=== PATIENT | male | born 1955 | race Caucasian/White ===

== ENCOUNTER 2017-06-16 16:45 | Inpatient (IN) | payer MEDICARE ==
[~2017-06-16] VITALS: Ht 167.6 cm; Wt 82.6 kg
[2017-06-16] MEDS ORDERED: METHYLPREDNISOLONE SOD SUCC 125 MG/2 ML VIAL IV STA (17:49)
[2017-06-16] MEDS ORDERED: ALBUTEROL (0.083%) 2.5MG/3ML NEB HHN STA (17:49)
[2017-06-16] MEDS ORDERED: ACETAMINOPHEN 325MG TABLET PO STA (18:06)
[2017-06-16 18:42] LABS: HEMATOCRIT. 40.3 % (42.0-52.0); HEMOGLOBIN. 13.9 g/dL (14.0-18.0); MEAN CORPUSCULAR HEMOGLOBIN 34.9 pg (28.0-32.0); MEAN PLATELET VOLUME 9.3 fl (7.4-10.4); PLATELET 89 x1000/uL (130-400); RED BLOOD CELL COUNT 3.99 mill/uL (4.7-6.1); RED CELL DISTRIBUTION WIDTH 12.9 % (11.6-14.6)
[2017-06-16] MEDS ORDERED: ACETAMINOPHEN 650MG SUPP PR ONE (18:45)
[2017-06-16 18:50] LABS: CHLORIDE 85 mEq/L (98-107)
[2017-06-16 18:51] LABS: INR 1.1; PROTHROMBIN TIME 11.2 sec (9.4-11.6)
[2017-06-16 18:55] LABS: TROPONIN I < 0.02 ng/mL (0.00-0.04)
[2017-06-16 18:58] LABS: PLATELET ESTIMATE DECREASED
[2017-06-16] MEDS ORDERED: VANCOMYCIN 1 G PREMIX 200 ML IV ONE (21:00)
[2017-06-16] MEDS ORDERED: PIPERACILLIN/TAZ 3.375G PREMIX 50 ML IV ONE (21:00)
[2017-06-17] VITALS (8 sets, daily range): BP systolic 101–124; BP diastolic 43–84
[2017-06-17] MEDS ORDERED: LORAZEPAM 2MG/ML CPJ IV PRN (07:15)
[2017-06-17] MEDS ORDERED: MORPHINE SULFATE 4 MG/ML CPJ (NOT FOR IM USE) IV PRN (07:15)
[2017-06-17] MEDS ORDERED: ONDANSETRON HCL 4MG/2ML VIAL IV PRN (07:15)
[2017-06-17] MEDS ORDERED: MAGNESIUM/ALUMINUM HYDROXIDE/SIMETHICONE 30ML UDC PO PRN (07:15)
[2017-06-17] MEDS ORDERED: ACETAMINOPHEN 325MG TABLET PO PRN (07:15)
[2017-06-17] MEDS ORDERED: CLONIDINE 0.1MG TABLET PO PRN (07:15)
[2017-06-17] MEDS ORDERED: HYDROCODONE/ACETAMINOPHEN 5/325MG TABLET PO PRN (07:15)
[2017-06-17] MEDS ORDERED: DIPHENHYDRAMINE 50MG/ML VIAL IV PRN (07:15)
[2017-06-17] MEDS ORDERED: IPRATROPIUM/ALBUTEROL 0.5-3(2.5)MG/3ML NEB INH PRN (07:15)
[2017-06-17] MEDS ORDERED: LORAZEPAM 0.5MG TABLET PO PRN (07:30)
[2017-06-17] MEDS ORDERED: GUAIFENESIN 200MG/10ML SUGAR FREE UDC PO PRN (08:00)
[2017-06-17] MEDS ORDERED: DOCUSATE SODIUM 100MG CAPSULE PO PRN (09:00)
[2017-06-17] MEDS: ENOXAPARIN 40MG/0.4ML SYR SUBCUT SCH (09:00)
[2017-06-17] MEDS ORDERED: NA PHOS,M-B/NA PHOS,DI-BA ENEMA 118ML PR PRN (09:00)
[2017-06-17] MEDS: ASPIRIN 81MG EC TABLET PO SCH (09:08)
[2017-06-17] MEDS: METHYLPREDNISOLONE SOD SUCC 125 MG/2 ML VIAL IV SCH ×3 (09:08→20:31)
[2017-06-17] MEDS: LEVOFLOXACIN 500MG PREMIX 100 ML IV SCH (09:11)
[2017-06-17] MEDS ORDERED: BISACODYL 10MG SUPP PR PRN (10:30)
[2017-06-17] MEDS ORDERED: LORAZEPAM 2MG/ML CPJ IM PRN (10:30)
[2017-06-17] MEDS ORDERED: MAGNESIUM HYDROXIDE 400MG/5ML 30ML UDC PO PRN (10:30)
[2017-06-17] MEDS: FINASTERIDE 5MG TABLET GT SCH (12:56)
[2017-06-17] MEDS: FISH OIL/OMEGA-3 FATTY ACIDS 1000MG CAPSULE GT SCH (13:27)
[2017-06-17] MEDS: LACTULOSE 20G/30ML UDC GT SCH (13:27)
[2017-06-17] MEDS: CHOLECALCIFEROL (D3) 1000 UNIT TABLET GT SCH (13:29)
[2017-06-17] MEDS: CALCIUM CARBONATE 1,250 MG/5 ML UDC PO SCH (17:11)
[2017-06-17] MEDS: VALPROATE SODIUM 250MG/5ML UDC GT SCH (17:11)
[2017-06-17 19:45] LABS: CHLORIDE 90 mEq/L (98-107)
[2017-06-17 19:54] LABS: CREATINE KINASE 253 IU/L (39-308); CREATINE KINASE MB FRACTION 1.5 ng/mL (0.5-3.6); TROPONIN I < 0.02 ng/mL (0.00-0.04)
[2017-06-17] MEDS ORDERED: FUROSEMIDE 40MG/4ML VIAL IVP SCH (20:00)
[2017-06-17] MEDS: VANCOMYCIN 1500MG in DEXTROSE 5% WATER 250ML IV SCH (20:30)
[2017-06-17] MEDS: ATORVASTATIN CALCIUM 20MG TABLET GT SCH (20:31)
[2017-06-17] MEDS: GUAIFENESIN 600MG ER TABLET PO SCH (20:31)
[2017-06-17] MEDS: PHENOBARBITAL 30 MG TABLET GT SCH (21:54)
[2017-06-17] MEDS: LEVETIRACETAM 500MG/5ML CUP GT SCH (21:54)
[2017-06-17] MEDS: PHENOBARBITAL 100MG TABLET GT SCH (21:54)
[2017-06-17] MEDS ORDERED: [UNRECOGNIZED DRUG - CODE] GT (22:23)
[2017-06-17] MEDS ORDERED: MULT9LIQ7 GT (22:24)
[2017-06-17] MEDS ORDERED: LEVO100T9 GT (22:25)
[2017-06-17] MEDS ORDERED: PROT40 GT (22:26)
[2017-06-17] MEDS ORDERED: LEVE500T19 GT (22:28)
[2017-06-17] MEDS ORDERED: MOM GT (22:30)
[2017-06-17] MEDS ORDERED: LOVA20TA2 GT (22:34)
[2017-06-17] MEDS ORDERED: AMIN30LI2 GT (22:34)
[2017-06-17] MEDS ORDERED: RUFI400T GT (22:36)
[2017-06-17] MEDS ORDERED: PHEN100T GT (22:37)
[2017-06-17] MEDS ORDERED: PHEN30TA42 GT (22:39)
[2017-06-17] MEDS ORDERED: LACT10SO GT (22:41)
[2017-06-17] MEDS ORDERED: FINA5TAB11 GT (22:43)
[2017-06-17] MEDS ORDERED: LACO100T2 GT (22:46)
[2017-06-17] MEDS ORDERED: VALP250C3 GT (22:46)
[2017-06-17] MEDS ORDERED: LEVO750T21 GT (22:47)
[2017-06-17] MEDS ORDERED: DEXT15SY3 GT (22:48)
[2017-06-17] MEDS: PIPERACILLIN/TAZ 3.375G PREMIX 50 ML IV SCH (22:53)
[2017-06-17] MEDS ORDERED: LORA2VIA33 IJ (23:09)
[2017-06-17] MEDS ORDERED: BISA-81 PR (23:10)
[2017-06-18] VITALS: BP 109/60
[2017-06-18 00:24] LABS: CREATINE KINASE 229 IU/L (39-308); CREATINE KINASE MB FRACTION 1.2 ng/mL (0.5-3.6); TROPONIN I < 0.02 ng/mL (0.00-0.04)
[2017-06-18] MEDS: METHYLPREDNISOLONE SOD SUCC 125 MG/2 ML VIAL IV SCH ×2 (02:48→07:46)
[2017-06-18 04:00] VITALS: BP 108/44
[2017-06-18] MEDS: PIPERACILLIN/TAZ 3.375G PREMIX 50 ML IV SCH ×3 (05:55→21:54)
[2017-06-18] MEDS: VANCOMYCIN 1500MG in DEXTROSE 5% WATER 250ML IV SCH ×2 (07:10→18:26)
[2017-06-18 07:25] LABS: BASOPHILS % 0.1 % (0.0-2.0); HEMATOCRIT. 39.4 % (42.0-52.0); HEMOGLOBIN. 13.7 g/dL (14.0-18.0); LYMPHOCYTES % 12.2 % (20.0-50.0); MEAN CORPUSCULAR VOLUME 100.6 fL (80.0-94.0); MEAN PLATELET VOLUME 10.1 fl (7.4-10.4); MONOCYTES % 11.9 % (2.0-8.0); NEUTROPHILS % 75.8 % (40.0-76.0); PLATELET 100 x1000/uL (130-400); RED BLOOD CELL COUNT 3.91 mill/uL (4.7-6.1); RED CELL DISTRIBUTION WIDTH 13.2 % (11.6-14.6)
[2017-06-18] MEDS: CALCIUM CARBONATE 1,250 MG/5 ML UDC PO SCH ×2 (07:45→17:03)
[2017-06-18] MEDS: LACTULOSE 20G/30ML UDC GT SCH (07:45)
[2017-06-18] MEDS: LEVETIRACETAM 500MG/5ML CUP GT SCH ×2 (07:46→21:58)
[2017-06-18] MEDS: VALPROATE SODIUM 250MG/5ML UDC GT SCH ×2 (07:46→17:04)
[2017-06-18] MEDS: FISH OIL/OMEGA-3 FATTY ACIDS 1000MG CAPSULE GT SCH (07:47)
[2017-06-18] MEDS: GUAIFENESIN 600MG ER TABLET PO SCH (07:47)
[2017-06-18] MEDS: MULTIVITAMINS,THER W-MINERALS TABLET GT SCH (07:47)
[2017-06-18] MEDS: FINASTERIDE 5MG TABLET GT SCH (07:47)
[2017-06-18] MEDS: ASPIRIN 81MG EC TABLET PO SCH (07:48)
[2017-06-18 08:23] VITALS: BP 126/64
[2017-06-18 08:34] LABS: CHLORIDE 91 mEq/L (98-107)
[2017-06-18 08:49] LABS: CREATINE KINASE 200 IU/L (39-308); CREATINE KINASE MB FRACTION 0.9 ng/mL (0.5-3.6); HDL CHOLESTEROL 44 mg/dL (40-59); LDL CHOLESTEROL 77 mg/dL (5-100); T4 FREE 0.98 ng/dL (0.76-1.46)
[2017-06-18] MEDS: ENOXAPARIN 40MG/0.4ML SYR SUBCUT SCH (09:00)
[2017-06-18] MEDS: LEVOFLOXACIN 500MG PREMIX 100 ML IV SCH (09:29)
[2017-06-18 12:19] VITALS: BP 118/62
[2017-06-18] MEDS: CHOLECALCIFEROL (D3) 1000 UNIT TABLET GT SCH (12:34)
[2017-06-18] MEDS ORDERED: LORAZEPAM 2MG/ML CPJ IV PRN (13:15)
[2017-06-18 16:00] VITALS: BP 120/66
[2017-06-18 20:00] VITALS: BP 97/54
[2017-06-18] MEDS ORDERED: GUAIFENESIN 200MG/10ML SUGAR FREE UDC GT SCH (21:00)
[2017-06-18] MEDS: ATORVASTATIN CALCIUM 20MG TABLET GT SCH (21:54)
[2017-06-18] MEDS: PHENOBARBITAL 100MG TABLET GT SCH (21:54)
[2017-06-18] MEDS: PHENOBARBITAL 30 MG TABLET GT SCH (21:54)
[2017-06-19] VITALS (8 sets, daily range): BP systolic 89–122; BP diastolic 44–64
[2017-06-19] MEDS: GUAIFENESIN 200MG/10ML SUGAR FREE UDC GT SCH ×4 (03:48→22:52)
[2017-06-19] MEDS: PIPERACILLIN/TAZ 3.375G PREMIX 50 ML IV SCH ×3 (05:37→22:54)
[2017-06-19] MEDS: VANCOMYCIN 1500MG in DEXTROSE 5% WATER 250ML IV SCH (06:51)
[2017-06-19] MEDS: LEVETIRACETAM 500MG/5ML CUP GT SCH ×2 (08:42→22:53)
[2017-06-19] MEDS: LACTULOSE 20G/30ML UDC GT SCH (08:43)
[2017-06-19] MEDS: FISH OIL/OMEGA-3 FATTY ACIDS 1000MG CAPSULE GT SCH (08:43)
[2017-06-19] MEDS: FINASTERIDE 5MG TABLET GT SCH (08:43)
[2017-06-19] MEDS: MULTIVITAMINS,THER W-MINERALS TABLET GT SCH (08:43)
[2017-06-19] MEDS: CALCIUM CARBONATE 1,250 MG/5 ML UDC PO SCH ×2 (08:43→22:52)
[2017-06-19] MEDS: ASPIRIN 81MG EC TABLET PO SCH (08:43)
[2017-06-19] MEDS: VALPROATE SODIUM 250MG/5ML UDC GT SCH ×2 (08:43→18:39)
[2017-06-19] MEDS: CHOLECALCIFEROL (D3) 1000 UNIT TABLET GT SCH (13:10)
[2017-06-19 18:14] LABS: BG BASE EXCESS 6.8 mmol/L (-2.0-2.0); BG CARBOXYHEMOGLOBIN 0.3 % (0.5-1.5); BG DEOXYHEMOGLOBIN 3.9 % (0.0-5.0); BG FRACTION INSPIRED OXYGEN 28; BG HCO3 ACT 31.4 mmol/L (22.0-26.0); BG METHEMOGLOBIN 0.3 % (0.0-1.5); BG OXYGEN SATURATION 96.1 % (92.0-98.5); BG OXYHEMOGLOBIN 95.5 % (94.0-97.0); BG PCO2 44.3 mmHg (35.0-45.0); BG PH 7.468 (7.350-7.450); BG PO2 80.4 mmHg (75.0-100.0); BG SAMPLE SITE RIGHT BRACHIAL; BG TOTAL HEMOGLOBIN 13.1 g/dL (12.0-18.0); BG VENT MODE NASAL CANNULA
[2017-06-19] MEDS ORDERED: DOCUSATE SODIUM SUGAR FREE 100MG/10ML UDC GT PRN (18:30)
[2017-06-19 20:05] LABS: HEMATOCRIT. 37.8 % (42.0-52.0); HEMOGLOBIN. 12.8 g/dL (14.0-18.0); MEAN CORPUSCULAR HEMOGLOBIN 34.4 pg (28.0-32.0); MEAN CORPUSCULAR VOLUME 101.6 fL (80.0-94.0); PLATELET 102 x1000/uL (130-400); RED BLOOD CELL COUNT 3.72 mill/uL (4.7-6.1); RED CELL DISTRIBUTION WIDTH 13.2 % (11.6-14.6)
[2017-06-19 20:16] LABS: CHLORIDE 95 mEq/L (98-107)
[2017-06-19 20:25] LABS: PLATELET ESTIMATE DECREASED
[2017-06-19] MEDS: PHENOBARBITAL 100MG TABLET GT SCH (22:53)
[2017-06-19] MEDS: PHENOBARBITAL 30 MG TABLET GT SCH (22:53)
[2017-06-19] MEDS: ATORVASTATIN CALCIUM 20MG TABLET GT SCH (22:53)
[2017-06-19] MEDS: VANCOMYCIN 1250MG in DEXTROSE 5% WATER 250ML IV SCH (22:54)
[2017-06-20] VITALS (12 sets, daily range): BP systolic 96–135; BP diastolic 46–67
[2017-06-20] MEDS: GUAIFENESIN 200MG/10ML SUGAR FREE UDC GT SCH ×4 (04:42→21:34)
[2017-06-20] MEDS: PIPERACILLIN/TAZ 3.375G PREMIX 50 ML IV SCH ×3 (04:43→23:34)
[2017-06-20 10:11] LABS: PHENOBARBITAL 32.3 ug/mL (15.0-40.0)
[2017-06-20] MEDS: VANCOMYCIN 1250MG in DEXTROSE 5% WATER 250ML IV SCH ×2 (11:06→21:33)
[2017-06-20] MEDS: LEVETIRACETAM 500MG/5ML CUP GT SCH ×2 (11:06→21:34)
[2017-06-20] MEDS: MULTIVITAMINS,THER W-MINERALS TABLET GT SCH (11:07)
[2017-06-20] MEDS: LACTULOSE 20G/30ML UDC GT SCH (11:07)
[2017-06-20] MEDS: ASPIRIN 81MG EC TABLET PO SCH (11:07)
[2017-06-20] MEDS: VALPROATE SODIUM 250MG/5ML UDC GT SCH ×2 (11:07→17:25)
[2017-06-20] MEDS: CHOLECALCIFEROL (D3) 1000 UNIT TABLET GT SCH (11:08)
[2017-06-20] MEDS: FISH OIL/OMEGA-3 FATTY ACIDS 1000MG CAPSULE GT SCH (11:08)
[2017-06-20] MEDS: FINASTERIDE 5MG TABLET GT SCH (11:08)
[2017-06-20] MEDS: VIMPAT 10 MG/ML GT SCH ×2 (12:34→18:44)
[2017-06-20] MEDS: CALCIUM CARBONATE 1,250 MG/5 ML UDC PO SCH ×2 (12:34→18:44)
[2017-06-20] MEDS: BANZEL GT SCH ×2 (15:00→20:20)
[2017-06-20] MEDS: BANZEL 400 MG GT SCH ×2 (15:00→20:19)
[2017-06-20] MEDS: PHENOBARBITAL 30 MG TABLET GT SCH (21:33)
[2017-06-20] MEDS: PHENOBARBITAL 100MG TABLET GT SCH (21:33)
[2017-06-20] MEDS: ATORVASTATIN CALCIUM 20MG TABLET GT SCH (21:33)
[2017-06-21] VITALS (12 sets, daily range): BP systolic 104–125; BP diastolic 49–72
[2017-06-21] MEDS: GUAIFENESIN 200MG/10ML SUGAR FREE UDC GT SCH ×4 (04:15→21:19)
[2017-06-21] MEDS: BANZEL GT SCH ×3 (06:00→09:05)
[2017-06-21] MEDS: PIPERACILLIN/TAZ 3.375G PREMIX 50 ML IV SCH ×3 (06:39→21:19)
[2017-06-21] MEDS: BANZEL 400 MG GT SCH ×3 (06:39→17:07)
[2017-06-21 08:07] LABS: HEMATOCRIT. 36.4 % (42.0-52.0); HEMOGLOBIN. 12.4 g/dL (14.0-18.0); MEAN CORPUSCULAR HEMOGLOBIN 34.2 pg (28.0-32.0); MEAN CORPUSCULAR VOLUME 100.2 fL (80.0-94.0); MEAN PLATELET VOLUME 9.1 fl (7.4-10.4); PLATELET 119 x1000/uL (130-400); RED BLOOD CELL COUNT 3.64 mill/uL (4.7-6.1); RED CELL DISTRIBUTION WIDTH 12.5 % (11.6-14.6)
[2017-06-21 08:25] LABS: CHLORIDE 95 mEq/L (98-107)
[2017-06-21] MEDS: LACTULOSE 20G/30ML UDC GT SCH (08:55)
[2017-06-21] MEDS: MULTIVITAMINS,THER W-MINERALS TABLET GT SCH (08:55)
[2017-06-21] MEDS: FINASTERIDE 5MG TABLET GT SCH (08:55)
[2017-06-21] MEDS: LEVETIRACETAM 500MG/5ML CUP GT SCH ×2 (08:55→21:19)
[2017-06-21] MEDS: VALPROATE SODIUM 250MG/5ML UDC GT SCH ×2 (08:55→17:07)
[2017-06-21] MEDS: ASPIRIN 81MG EC TABLET PO SCH (08:55)
[2017-06-21] MEDS: FISH OIL/OMEGA-3 FATTY ACIDS 1000MG CAPSULE GT SCH (08:56)
[2017-06-21] MEDS: VANCOMYCIN 1250MG in DEXTROSE 5% WATER 250ML IV SCH (08:56)
[2017-06-21 11:48] LABS: PLATELET ESTIMATE SLIGHTLY DECREASED
[2017-06-21] MEDS: CALCIUM CARBONATE 1,250 MG/5 ML UDC PO SCH ×2 (13:13→17:07)
[2017-06-21] MEDS: VIMPAT 10 MG/ML GT SCH ×2 (13:13→17:07)
[2017-06-21] MEDS: CHOLECALCIFEROL (D3) 1000 UNIT TABLET GT SCH (13:14)
[2017-06-21] MEDS: ATORVASTATIN CALCIUM 20MG TABLET GT SCH (21:19)
[2017-06-21] MEDS: VANCOMYCIN 1 G PREMIX 200 ML IV SCH (21:49)
[2017-06-22] VITALS (9 sets, daily range): BP systolic 108–135; BP diastolic 60–86
[2017-06-22] MEDS: GUAIFENESIN 200MG/10ML SUGAR FREE UDC GT SCH ×2 (03:42→09:28)
[2017-06-22] MEDS: PIPERACILLIN/TAZ 3.375G PREMIX 50 ML IV SCH (05:52)
[2017-06-22] MEDS: BANZEL 400 MG GT SCH ×2 (05:53→12:42)
[2017-06-22] MEDS: BANZEL GT SCH ×2 (06:00→12:42)
[2017-06-22] MEDS: LEVETIRACETAM 500MG/5ML CUP GT SCH (09:07)
[2017-06-22] MEDS: FISH OIL/OMEGA-3 FATTY ACIDS 1000MG CAPSULE GT SCH (09:07)
[2017-06-22] MEDS: FINASTERIDE 5MG TABLET GT SCH (09:07)
[2017-06-22] MEDS: CALCIUM CARBONATE 1,250 MG/5 ML UDC PO SCH (09:07)
[2017-06-22] MEDS: MULTIVITAMINS,THER W-MINERALS TABLET GT SCH (09:07)
[2017-06-22] MEDS: LACTULOSE 20G/30ML UDC GT SCH (09:07)
[2017-06-22] MEDS: ASPIRIN 81MG EC TABLET PO SCH (09:08)
[2017-06-22] MEDS: VALPROATE SODIUM 250MG/5ML UDC GT SCH (09:16)
[2017-06-22] MEDS: VANCOMYCIN 1 G PREMIX 200 ML IV SCH (09:28)
[2017-06-22] MEDS: VIMPAT 10 MG/ML GT SCH (09:28)
[2017-06-22] MEDS: CHOLECALCIFEROL (D3) 1000 UNIT TABLET GT SCH (12:42)
== END 2017-06-22 13:50 | disposition home or self-care (01) | DRG 871 ==
LOC: ER 16:53 → 6WST 20:56 → EDBEDREQ 21:02 → EDBEDREQTM 21:02 → ENRESERV 06-17 04:50 → 5EST 06-19 17:14
PROVIDERS: ADMIT Internal Medicine; ATTEND Internal Medicine
PROC: 4A10X4Z Monitoring of Central Nervous Electrical Activity, External Approach (ICD-10-PCS; principal; 2017-06-19)
DX: A41.9 Sepsis, unspecified organism (principal); J96.00 Acute respiratory failure, unspecified whether with hypoxia or hypercapnia; J69.0 Pneumonitis due to inhalation of food and vomit; E46 Unspecified protein-calorie malnutrition; E87.1 Hypo-osmolality and hyponatremia; I50.9 Heart failure, unspecified; I11.0 Hypertensive heart disease with heart failure; G40.909 Epilepsy, unspecified, not intractable, without status epilepticus; F79 Unspecified intellectual disabilities; I25.10 Atherosclerotic heart disease of native coronary artery without angina pectoris; L89.90 Pressure ulcer of unspecified site, unspecified stage; Z93.1 Gastrostomy status; Z68.29 Body mass index [BMI] 29.0-29.9, adult
CPT/HCPCS: 36415; 36600; 70450; 71045; 76604; 80048; 80053; 80061; 80165; 80184; 80202; 82375; 82542; 82550; 82553; 82805; 83036; 83605; 83880; 84145; 84439; 84443; 84484; 85025; 85049; 85379; 85610; 87040; 93005; 93306; 93970; 96365; 96366; 96368; 96375; 99291; A6261; J1650; J1940; J1956; J2543; J2930; J3370; J7050; J7060

== ENCOUNTER 2018-06-05 10:27 | Inpatient (IN) | payer MEDICARE, MEDICAID ==
[~2018-06-05] VITALS: Ht 175.3 cm; Wt 87.5 kg
[~2018-06-05 10:27] MED LIST: AMIN30LI2 GT; BISA-81 PR; DEXT15SY3 GT; FINA5TAB11 GT; LACO100T2 GT; LACT10SO GT; LEVE500T19 GT; LEVO100T9 GT; LEVO750T21 GT; LORA2VIA34 IJ; LOVA20TA2 GT; MOM GT; MULT9LIQ7 GT; PHEN100T GT; PHEN30TA42 GT; PROT40 GT; RUFI400T GT; VALP250C3 GT; [UNRECOGNIZED DRUG - CODE] GT
[2018-06-05] MEDS ORDERED: LORAZEPAM 2MG/ML CPJ IV ONE (10:45)
[2018-06-05] MEDS ORDERED: LEVETIRACETAM 500MG PREMIX 100 ML IV ONE (10:45)
[2018-06-05 12:10] LABS: HEMOGLOBIN. 13.5 g/dL (14.0-18.0); MEAN CORPUSCULAR HEMOGLOBIN 36.4 pg (28.0-32.0); MEAN CORPUSCULAR VOLUME 104.9 fL (80.0-94.0); MEAN PLATELET VOLUME 9.2 fl (7.4-10.4); PLATELET 132 x1000/uL (130-400); RED BLOOD CELL COUNT 3.72 mill/uL (4.7-6.1); RED CELL DISTRIBUTION WIDTH 13.5 % (11.6-14.6)
[2018-06-05 12:15] LABS: CHLORIDE 99 mEq/L (98-107)
[2018-06-05 12:16] LABS: INR 1.1; PROTHROMBIN TIME 10.9 sec (9.1-11.1)
[2018-06-05 12:21] LABS: ETHANOL BLOOD < 10 mg/dL
[2018-06-05 12:24] LABS: PHENOBARBITAL 26.8 ug/mL (15.0-40.0)
[2018-06-05 12:25] LABS: CREATINE KINASE 41 IU/L (39-308)
[2018-06-05 12:28] LABS: CARBAMAZEPINE < 0.5 ug/mL (4-12)
[2018-06-05 12:41] LABS: PLATELET ESTIMATE NORMAL
[2018-06-05 13:40] LABS: CLARITY URINE CLEAR (CLEAR); COLOR URINE YELLOW (YELLOW); KETONES URINE NEGATIVE (NEGATIVE); LEUKOCYTE ESTERASE URINE NEGATIVE (NEGATIVE); NITRITE URINE NEGATIVE (NEGATIVE); OCCULT BLOOD URINE NEGATIVE (NEGATIVE); PH URINE 8.5 (4.5-8.0); PROTEIN URINE NEGATIVE (NEGATIVE); SPECIFIC GRAVITY URINE 1.016 (1.005-1.030); UROBILINOGEN URINE 0.2 E.U./dL (0.2-1.0)
[2018-06-05 14:11] LABS: *AMPHETAMINES SCREEN URINE NEGATIVE (NEGATIVE); *BARBITURATES SCREEN URINE PRESUMTIVE POSITIVE (NEGATIVE); *BENZODIAZEPINES SCREEN URINE NEGATIVE (NEGATIVE); *COCAINE SCREEN URINE NEGATIVE (NEGATIVE); METHADONE URINE SCREEN NEGATIVE (NEGATIVE)
[2018-06-05 14:12] LABS: CANNABINOID URINE SCREEN NEGATIVE (NEGATIVE); OPIATES URINE SCREEN NEGATIVE (NEGATIVE); PHENCYCLIDINE URINE SCREEN NEGATIVE (NEGATIVE)
[2018-06-05] MEDS ORDERED: MAGNESIUM/ALUMINUM HYDROXIDE/SIMETHICONE 30ML UDC PO PRN (15:15)
[2018-06-05] MEDS ORDERED: GUAIFENESIN 200MG/10ML SUGAR FREE UDC PO PRN (15:15)
[2018-06-05] MEDS ORDERED: IPRATROPIUM/ALBUTEROL 0.5-3(2.5)MG/3ML NEB INH PRN (15:15)
[2018-06-05] MEDS ORDERED: NITROGLYCERIN 0.4MG TABLET SL SL PRN (15:15)
[2018-06-05] MEDS ORDERED: DOCUSATE SODIUM 100MG CAPSULE PO PRN (15:15)
[2018-06-05] MEDS ORDERED: ONDANSETRON HCL 4MG/2ML INJ IV PRN (15:15)
[2018-06-05] MEDS ORDERED: CLONIDINE 0.1MG TABLET PO PRN (15:15)
[2018-06-05] MEDS ORDERED: TRAMADOL 50MG TABLET PO PRN (15:15)
[2018-06-05] MEDS ORDERED: LORAZEPAM 2MG/ML CPJ IV PRN (15:15)
[2018-06-05] MEDS ORDERED: ACETAMINOPHEN 325MG TABLET PO PRN (15:15)
[2018-06-05 16:20] VITALS: BP 115/65
[2018-06-05 16:53] VITALS: BP 115/65
[2018-06-05] MEDS ORDERED: LEVO125T8 GT (17:51)
[2018-06-05] MEDS ORDERED: FINA5TAB11 GT (17:51)
[2018-06-05] MEDS ORDERED: SUCR1TAB GT (17:51)
[2018-06-05] MEDS ORDERED: L.AC1CAP6 GT (17:53)
[2018-06-05] MEDS ORDERED: FISH GT (17:53)
[2018-06-05] MEDS ORDERED: VALP250S5 GT (18:01)
[2018-06-05] MEDS ORDERED: CALCIUM CARBONATE GT (18:01)
[2018-06-05] MEDS ORDERED: PNEUMOCOCCAL 23-VAL P-SAC VAC 0.5 ML IM ONE (19:15)
[2018-06-05 20:00] VITALS: BP 149/64
[2018-06-05] MEDS ORDERED: LEVETIRACETAM 500MG PREMIX 100 ML IV SCH (21:00)
[2018-06-05] MEDS: FAMOTIDINE 20MG TABLET PO SCH (22:37)
[2018-06-05] MEDS: ASCORBIC ACID 500 MG TABLET PO SCH (22:37)
[2018-06-05] MEDS: VALPROIC ACID 250MG CAPSULE PO SCH (22:37)
[2018-06-05] MEDS: LEVETIRACETAM 500MG in SODIUM CHLORIDE 0.9% 100ML IV SCH (22:38)
[2018-06-05] MEDS: METOPROLOL TARTRATE 25MG TABLET PO SCH (22:38)
[2018-06-06] VITALS (7 sets, daily range): BP systolic 113–145; BP diastolic 46–91
[2018-06-06] MEDS: PHENOBARBITAL 30 MG TABLET PO SCH ×4 (00:10→22:00)
[2018-06-06] MEDS: VALPROIC ACID 250MG CAPSULE PO SCH ×3 (06:51→22:00)
[2018-06-06] MEDS: LEVOTHYROXINE SODIUM 100MCG TABLET PO SCH (06:51)
[2018-06-06] MEDS: LEVETIRACETAM 500MG in SODIUM CHLORIDE 0.9% 100ML IV SCH (09:14)
[2018-06-06] MEDS: FAMOTIDINE 20MG TABLET PO SCH ×2 (09:50→22:00)
[2018-06-06] MEDS: METOPROLOL TARTRATE 25MG TABLET PO SCH ×2 (09:50→22:01)
[2018-06-06] MEDS: ASCORBIC ACID 500 MG TABLET PO SCH ×2 (09:50→22:01)
[2018-06-06] MEDS: ENOXAPARIN 40MG/0.4ML SYR SUBCUT SCH (10:00)
[2018-06-06] MEDS: ASPIRIN 325MG EC TABLET PO SCH (10:00)
[2018-06-06] MEDS ORDERED: NON FORMULARY PATIENT HOME MED XX SCH (11:15)
[2018-06-06] MEDS: LACOSAMIDE 200 MG TABLET (VIMPAT) PO SCH ×2 (12:59→22:01)
[2018-06-06] MEDS: ZONISAMIDE 100MG CAPSULE PO SCH (13:00)
[2018-06-06] MEDS: LEVETIRACETAM 2,000 MG in SODIUM CHLORIDE 0.9% 250 ML IV SCH (22:00)
[2018-06-07] VITALS (7 sets, daily range): BP systolic 110–156; BP diastolic 50–76
[2018-06-07] MEDS: VALPROIC ACID 250MG CAPSULE PO SCH ×3 (05:38→22:29)
[2018-06-07] MEDS: PHENOBARBITAL 30 MG TABLET PO SCH ×3 (05:39→22:29)
[2018-06-07] MEDS: LEVOTHYROXINE SODIUM 100MCG TABLET PO SCH (05:42)
[2018-06-07] MEDS: FAMOTIDINE 20MG TABLET PO SCH ×2 (09:09→22:27)
[2018-06-07] MEDS: ZONISAMIDE 100MG CAPSULE PO SCH (09:09)
[2018-06-07] MEDS: ASPIRIN 325MG EC TABLET PO SCH (09:09)
[2018-06-07] MEDS: METOPROLOL TARTRATE 25MG TABLET PO SCH ×2 (09:10→22:28)
[2018-06-07] MEDS: ASCORBIC ACID 500 MG TABLET PO SCH ×2 (09:10→22:27)
[2018-06-07] MEDS: LACOSAMIDE 200 MG TABLET (VIMPAT) PO SCH ×2 (09:10→22:27)
[2018-06-07] MEDS: ENOXAPARIN 40MG/0.4ML SYR SUBCUT SCH (09:10)
[2018-06-07] MEDS: LEVETIRACETAM 2,000 MG in SODIUM CHLORIDE 0.9% 250 ML IV SCH ×2 (10:47→22:27)
[2018-06-08] VITALS: BP 126/61
[2018-06-08 04:00] VITALS: BP 97/58
[2018-06-08] MEDS: LEVOTHYROXINE SODIUM 100MCG TABLET PO SCH (05:54)
[2018-06-08] MEDS: PHENOBARBITAL 30 MG TABLET PO SCH (05:54)
[2018-06-08] MEDS: VALPROIC ACID 250MG CAPSULE PO SCH (05:54)
[2018-06-08 08:31] VITALS: BP 106/52
[2018-06-08] MEDS: METOPROLOL TARTRATE 25MG TABLET PO SCH (08:52)
[2018-06-08] MEDS: FAMOTIDINE 20MG TABLET PO SCH (08:59)
[2018-06-08] MEDS: ASCORBIC ACID 500 MG TABLET PO SCH (08:59)
[2018-06-08] MEDS: LACOSAMIDE 200 MG TABLET (VIMPAT) PO SCH (08:59)
[2018-06-08] MEDS: ASPIRIN 325MG EC TABLET PO SCH (08:59)
[2018-06-08] MEDS: ENOXAPARIN 40MG/0.4ML SYR SUBCUT SCH (08:59)
[2018-06-08] MEDS: ZONISAMIDE 100MG CAPSULE PO SCH (08:59)
[2018-06-08] MEDS: LEVETIRACETAM 2,000 MG in SODIUM CHLORIDE 0.9% 250 ML IV SCH (10:24)
[2018-06-08 12:02] VITALS: BP 114/41
[2018-06-08 13:24] VITALS: BP 114/41
[2018-06-08 16:08] VITALS: BP 121/51
== END 2018-06-08 17:05 | disposition home or self-care (01) | DRG 100 ==
LOC: ER 10:27 → EDBEDREQ 13:23 → ENRESERV 14:26 → 6WST 14:26 → SUPCPDRO 15:03 → 6WST 16:40
PROVIDERS: ADMIT Internal Medicine; ATTEND Internal Medicine
PROC: 4A00X4Z Measurement of Central Nervous Electrical Activity, External Approach (ICD-10-PCS; principal; 2018-06-08)
DX: G40.409 Other generalized epilepsy and epileptic syndromes, not intractable, without status epilepticus (principal); G92 Toxic encephalopathy; G82.50 Quadriplegia, unspecified; E44.0 Moderate protein-calorie malnutrition; E83.52 Hypercalcemia; G80.9 Cerebral palsy, unspecified; I10 Essential (primary) hypertension; K21.9 Gastro-esophageal reflux disease without esophagitis; E03.9 Hypothyroidism, unspecified; G93.89 Other specified disorders of brain; Z86.73 Personal history of transient ischemic attack (TIA), and cerebral infarction without residual deficits; Z98.2 Presence of cerebrospinal fluid drainage device; Z68.28 Body mass index [BMI] 28.0-28.9, adult; Z79.2 Long term (current) use of antibiotics; Z79.899 Other long term (current) drug therapy
CPT/HCPCS: 36415; 71045; 80061; 80156; 80165; 80184; 80185; 80305; 80339; 82140; 82542; 82550; 82962; 83036; 84443; 90732; 93005; 93970; 96365; 96366; 96375; 99285; J1650; J1953; J2060; J7050

== ENCOUNTER 2018-08-27 01:45 | Emergency (ER) | payer MEDICARE, MEDICAID ==
[~2018-08-27] VITALS: Ht 154.9 cm; Wt 75.0 kg
[~2018-08-27 01:45] MED LIST changes: +CALCIUM CARBONATE GT; -DEXT15SY3 GT; +FISH GT; +L.AC1CAP6 GT; -LEVO100T9 GT; +LEVO125T8 GT; -LEVO750T21 GT; +SUCR1TAB GT; -VALP250C3 GT; +VALP250S5 GT
[2018-08-27] MEDS ORDERED: SODIUM CHLORIDE 0.9% 1,000 ML IV ONE (02:46)
[2018-08-27 03:19] LABS: HEMATOCRIT. 39.4 % (42.0-52.0); HEMOGLOBIN. 13.8 g/dL (14.0-18.0); RED BLOOD CELL COUNT 3.83 mill/uL (4.7-6.1)
[2018-08-27 03:24] LABS: CHLORIDE 102 mEq/L (98-107)
[2018-08-27 04:14] LABS: CLARITY URINE CLOUDY (CLEAR); COLOR URINE YELLOW (YELLOW); KETONES URINE TRACE (NEGATIVE); LEUKOCYTE ESTERASE URINE NEGATIVE (NEGATIVE); NITRITE URINE NEGATIVE (NEGATIVE); OCCULT BLOOD URINE NEGATIVE (NEGATIVE); PH URINE >=9.0 (4.5-8.0); PROTEIN URINE NEGATIVE (NEGATIVE); SPECIFIC GRAVITY URINE 1.018 (1.005-1.030); UROBILINOGEN URINE 0.2 E.U./dL (0.2-1.0)
[2018-08-27] MEDS ORDERED: IOHEXOL-300 100 ML BOTTLE ONE (04:53)
[2018-08-27 04:54] LABS: PLATELET ESTIMATE SLIGHTLY DECREASED
[2018-08-27 04:56] LABS: PLATELET 100 x1000/uL (130-400)
[2018-08-27 06:00] VITALS: BP 149/59
== END 2018-08-27 07:21 | disposition home or self-care (01) ==
LOC: ER 01:45
DX: K59.00 Constipation, unspecified (principal); G40.909 Epilepsy, unspecified, not intractable, without status epilepticus; R11.10 Vomiting, unspecified; K21.9 Gastro-esophageal reflux disease without esophagitis; I10 Essential (primary) hypertension; E03.9 Hypothyroidism, unspecified; Z93.1 Gastrostomy status; G80.9 Cerebral palsy, unspecified; Z79.899 Other long term (current) drug therapy
CPT/HCPCS: 36415; 70450; 71045; 74177; 80053; 81003; 83605; 83690; 85025; 96360; 99284; J7030; J7040; Q9967